=== PATIENT | female | born 1960 | race American Indian/Alaskan Native ===

== ENCOUNTER 2017-08-20 10:21 | Day surgery (SDC) | payer OTHER ==
[2013-04-24 19:55] VITALS: BMI 27.4
[2017-08-20] MEDS ORDERED: Propofol 10 mg/ml Inj (20 ML) ONE ×2 (11:39→11:54)
[2017-08-20] MEDS ORDERED: Lactated Ringer's 1,000 ML IV ONE (11:49)
[2017-08-20] MEDS ORDERED: Lidocaine Hydrochloride 5 ML INJ ONE (11:51)
[2017-08-20 13:36] VITALS: RESP 16; TEMP 96.6
[2017-08-20 13:48] VITALS: BP 104/56; PULSE 66; O2SAT 99
== END 2017-08-20 13:20 | disposition home or self-care (01) ==
LOC: C.ENDO 10:21
PROVIDERS: ATTEND Internal Medicine Gastroenterology
DX: Z12.11 Encounter for screening for malignant neoplasm of colon (principal); K64.0 First degree hemorrhoids; I10 Essential (primary) hypertension; E78.5 Hyperlipidemia, unspecified; E11.9 Type 2 diabetes mellitus without complications; Z79.84 Long term (current) use of oral hypoglycemic drugs
CPT/HCPCS: 82948; G0121; J2704; J7120

== ENCOUNTER 2017-09-27 06:24 | Day surgery (SDC) | payer OTHER ==
[2013-04-24 19:55] VITALS: BMI 27.4
[2017-09-27 07:11] VITALS: TEMP 97.6
[2017-09-27] MEDS ORDERED: Propofol 10 mg/ml Inj (20 ML) ONE (08:36)
[2017-09-27] MEDS ORDERED: Lactated Ringer's 1,000 ML IV ONE ×2 (08:48)
[2017-09-27 10:22] VITALS: BP 138/72; PULSE 78; RESP 18; O2SAT 98
== END 2017-09-27 10:15 | disposition home or self-care (01) ==
LOC: C.ENDO 06:24
PROVIDERS: ATTEND Specialist
DX: K29.50 Unspecified chronic gastritis without bleeding (principal); K44.9 Diaphragmatic hernia without obstruction or gangrene
CPT/HCPCS: 43239; 82948; 88305; J2001; J2704; J7120